=== PATIENT | male | born 1990 | race Caucasian/White ===

== ENCOUNTER 2020-09-12 22:54 | Emergency (ER) | payer OTHER ==
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
[2020-09-12] MEDS ORDERED: KETOROLAC 60 MG/2 ML VIAL IM STA (23:34)
[2020-09-13] MEDS ORDERED: HYDROcod/ACET 5/325 Prepack 4 PO STA (01:03)
[2020-09-13 01:13] VITALS: BP 115/61
--- NOTE | 2020-09-13 08:03 | CT Report ---
PROCEDURE: HEAD WO INDICATIONS: concussion LOC, headache dizziness TECHNIQUE: Noncontrast 4.5 mm thick angled axial sections acquired from the foramen magnum to the vertex. For r adiation dose reduction, the following was used: automated exposure control, adjustment of mA and/or kV according to patient size. COMPARISON: None. FINDINGS: Image quality: Excellent. CSF spaces: Basal cisterns are patent. No extra-axial fluid collections. Ventricles are normal in size and shape. Brain: No midline shift. No intracranial masses or hemorrhage. Moore-white matter interface is norm al. Skull and face: Calvarium and visualized facial bones are intact, without suspicious lesions. Sinuses: Visualized sinuses and mastoids are clear. IMPRESSION: 1. No acute intracranial process. The above findings are concordant with preliminary report. Reviewed by: Meaghan Chaudhry MD on 09/13/2020 8:02 AM PDT Approved by: Meaghan Chaudhry MD on 09/13/2020 8:02 AM PDT Station ID: [id number]
--- NOTE | 2020-09-13 10:35 | CT Report ---
PROCEDURE: LUMBAR SPINE WO INDICATIONS: contusion pain to entire L/S spine midline TECHNIQUE: Noncontrast 3 mm thick sections acquired from the T12 level to the sacrum. Sagittal and coronal refo rmats were constructed. For radiation dose reduction, the following was used: automated exposure co ntrol, adjustment of mA and/or kV according to patient size. COMPARISON: None. FINDINGS: Image quality: Excellent. Bones: There is a right transverse process fracture identified at L2, L3, L4 There is trace retrolis thesis of L3 on L4, L4 and L5 and L5 on S1. No acute vertebral body compression fractures. No suspic ious lytic or blastic bony lesions. Central spinal caliber is of normal overall caliber. No pars de fects. Soft tissues: No retroperitoneal masses or hematomas. Visualized aorta is normal in caliber. IMPRESSION: 1. Acute right transverse process fractures at L2-L4. The above findings are concordant with preliminary report. Reviewed by: Meaghan Chaudhry MD on 09/13/2020 10:33 AM PDT Approved by: Meaghan Chaudhry MD on 09/13/2020 10:33 AM PDT Station ID: [id number]
--- NOTE | 2020-09-13 10:42 | XRAY Report ---
PROCEDURE: Shoulder 3 View RT INDICATIONS: contusion reduced ROM TECHNIQUE: 3 views of the shoulder were acquired. COMPARISON: None. FINDINGS: Bones: No fractures or dislocations. No suspicious bony lesions. Visualized ribs appear intact. Soft tissues: No suspicious soft tissue calcifications. IMPRESSION: No visualized acute fracture or dislocation. However, occult injury cannot be excluded. Recommend short interval imaging follow-up in 7-10 days as clinically indicated for additional evalua tion. The above findings are concordant with preliminary report. Reviewed by: Meaghan Chaudhry MD on 09/13/2020 10:40 AM PDT Approved by: Meaghan Chaudhry MD on 09/13/2020 10:40 AM PDT Station ID: [id number]
== END 2020-09-13 01:22 | disposition home or self-care (01) ==
LOC: ED 22:54
DX: S06.0X1A Concussion with loss of consciousness of 30 minutes or less, initial encounter (principal); S32.028A Other fracture of second lumbar vertebra, initial encounter for closed fracture; S32.038A Other fracture of third lumbar vertebra, initial encounter for closed fracture; S32.048A Other fracture of fourth lumbar vertebra, initial encounter for closed fracture; M25.511 Pain in right shoulder; V18.0XXA Pedal cycle driver injured in noncollision transport accident in nontraffic accident, initial encounter; Y93.55 Activity, bike riding; Y92.830 Public park as the place of occurrence of the external cause
CPT/HCPCS: 96372; 99283; 99284